=== PATIENT | male | born 1985 | race Two or more races ===

== ENCOUNTER 2021-12-14 00:17 | Emergency (ER) | payer SELFPAY ==
[~2021-12-14] VITALS: Ht 172.7 cm; Wt 56.0 kg
[2021-12-14 00:45] VITALS: BP 100/63
== END 2021-12-14 01:53 | disposition home or self-care (01) ==
LOC: EMS 00:20
DX: R07.81 Pleurodynia (principal); V43.52XA Car driver injured in collision with other type car in traffic accident, initial encounter; Y93.89 Activity, other specified; Y92.411 Interstate highway as the place of occurrence of the external cause; Y99.8 Other external cause status
CPT/HCPCS: 71045; 99283